=== PATIENT | male | born 1950 | race Caucasian/White ===

== ENCOUNTER 2016-08-25 11:01 | Emergency (ER) | payer MEDICAID, OTHER ==
[~2016-08-25] VITALS: Ht 167.6 cm; Wt 90.0 kg
[2016-08-25 11:03] VITALS: BP 167/84; PULSE 72; RESP 19; TEMP 97.4; O2SAT 98
[2016-08-25 11:28] VITALS: BP 157/86; PULSE 70; RESP 18; O2SAT 100
[2016-08-25] MEDS ORDERED: KETOROLAC TROMETHAMINE 30 MG/ML (IVP) VIAL IV PUSH ONE (11:30)
[2016-08-25] MEDS ORDERED: HYDROmorphone HCL PF 1 MG/ML VIAL IV PUSH ONE (11:30)
[2016-08-25] MEDS ORDERED: SODIUM CHLORIDE 0.9% FLUSH 10 ML FLUSH IV FLUSH PRN (11:30)
[2016-08-25] MEDS ORDERED: ONDANSETRON HCL 4 MG/2 ML VIAL IV PUSH ONE (11:30)
[2016-08-25] MEDS ORDERED: SODIUM CHLORID 0.9% 500 ML INJ 500 ML IV ONE (11:30)
--- NOTE | 2016-08-25 11:30 | PD ---
HPI Chief Complaint: Abdominal Pain Time Seen by Provider: 11:22 Travel History International Travel<30 days: No Contact w/Intl Traveler<30days: No Traveled to known affect area: No History of Present Illness HPI SUDDEN ONSET RIGHT FLANK PAIN, NAUSEA, NO VOMITING, NORMAL STOOL/ BM....OTHERWISE WAS DOING WELL PREVIOUSLY PFSH Past Medical History Hx Anticoagulant Therapy: Yes (PLAVIX) Cardiovascular Problems: Yes (HTN, NV) Social History Tobacco Use: No Allergies-Medications (Allergen,Severity, Reaction): Coded Allergies: Hydrocodone (Verified Allergy, Severe, VOMITING, 08/25/16) Review of Systems Except as stated in HPI: all other systems reviewed are Neg Gastrointestinal: Positive: Nausea, Abdominal Pain Genitourinary: Positive: Flank Pain Physical Exam Narrative GENERAL: SKIN: Warm and dry. HEAD: Atraumatic. Normocephalic. EYES: Pupils equal and round. No scleral icterus. No injection or drainage. ENT: No nasal bleeding or discharge. Mucous membranes pink and moist. NECK: Trachea midline. No JVD. CARDIOVASCULAR: Regular rate and rhythm. RESPIRATORY: No accessory muscle use. Clear to auscultation. Breath sounds equal bilaterally. GASTROINTESTINAL: Abdomen soft, non-tender, nondistended. Hepatic and splenic margins not palpable. REDUCIBLE UMBILICAL HERNIA AND REDUCIBLE RIGHT PARAABDOMINAL MUSCULOSKELETAL: Extremities without clubbing, cyanosis, or edema. No obvious deformities. NEUROLOGICAL: Awake and alert. No obvious cranial nerve deficits. Motor grossly within normal limits. Five out of 5 muscle strength in the arms and legs. Normal speech. PSYCHIATRIC: Appropriate mood and affect; insight and judgment normal. Data Data Last Documented VS Vital Signs Date Time Temp Pulse Resp B/P Pulse Ox O2 Delivery O2 Flow Rate FiO2 08/25/16 11:28 70 18 157/86 100 Room Air 08/25/16 11:03 97.4 Orders Complete Blood Count With Diff (08/25/16 11:22) Comprehensive Metabolic Panel (08/25/16 11:22) Lipase (08/25/16 11:22) Prothrombin Time / Inr (Pt) (08/25/16 11:22) Act Partial Throm Time (Ptt) (08/25/16 11:22) Urinalysis - C+S If Indicated (08/25/16 11:22) Ct Abd/Pel W/O Iv Contrast (08/25/16 11:22) Iv Access Insert/Monitor (08/25/16 11:22) Ecg Monitoring (08/25/16 11:22) Oximetry (08/25/16 11:22) NPO (08/25/16 11:22) Sodium Chloride 0.9% Flush (Ns Flush) (08/25/16 11:30) Ketorolac Inj (Toradol Inj) (08/25/16 11:30) Hydromorphone Pf Inj (Dilaudid Pf Inj) (08/25/16 11:30) Ondansetron Inj (Zofran Inj) (08/25/16 11:30) Sodium Chlorid 0.9% 500 Ml Inj (Ns 500 M (08/25/16 11:30) Labs Laboratory Tests Test 08/25/16 11:25 White Blood Count 6.1 TH/MM3 Red Blood Count 5.00 MIL/MM3 Hemoglobin 11.1 GM/DL Hematocrit 35.6 % Mean Corpuscular Volume 71.3 FL Mean Corpuscular Hemoglobin 22.2 PG Mean Corpuscular Hemoglobin 31.2 % Concent Red Cell Distribution Width 20.0 % Platelet Count 214 TH/MM3 Mean Platelet Volume 8.2 FL Neutrophils (%) (Auto) 80.6 % Lymphocytes (%) (Auto) 11.3 % Monocytes (%) (Auto) 5.5 % Eosinophils (%) (Auto) 2.3 % Basophils (%) (Auto) 0.3 % Neutrophils # (Auto) 4.9 TH/MM3 Lymphocytes # (Auto) 0.7 TH/MM3 Monocytes # (Auto) 0.3 TH/MM3 Eosinophils # (Auto) 0.1 TH/MM3 Basophils # (Auto) 0.0 TH/MM3 CBC Comment DIFF FINAL Differential Comment Prothrombin Time 10.7 SEC Prothromb Time International 1.0 RATIO Ratio Activated Partial 23.3 SEC Thromboplast Time Sodium Level 144 MEQ/L Potassium Level 4.0 MEQ/L Chloride Level 112 MEQ/L Carbon Dioxide Level 22.8 MEQ/L Anion Gap 9 MEQ/L Blood Urea Nitrogen 14 MG/DL Creatinine 1.21 MG/DL Estimat Glomerular Filtration 60 ML/MIN Rate Random Glucose 185 MG/DL Calcium Level 9.4 MG/DL Total Bilirubin 0.4 MG/DL Aspartate Amino Transf 25 U/L (AST/SGOT) Alanine Aminotransferase 30 U/L (ALT/SGPT) Alkaline Phosphatase 72 U/L Total Protein 7.4 GM/DL Albumin 3.9 GM/DL Lipase 140 U/L MDM Medical Decision Making Medical Screen Exam Complete: Yes Emergency Medical Condition: Yes Medical Record Reviewed: Yes Differential Diagnosis RENAL STONE V AAA V DISSECTION (AORTA) Narrative Course NOW PT PAIN IS WELL CONTROLLED, CT SHOWS RENAL STONE IN DISTAL PELVIS, AND IS EXPECTED TO PASS. Diagnosis Primary Impression: Ureterolithiasis Patient Instructions: General Instructions, Kidney Stones (ED) Med/Other Pt SpecificInfo: Prescription(s) given Scripts Oxycodone-Acetaminophen (Percocet)10-325 mg Tab1 Tab PO Q4H PRN (PAIN) #24 TAB Ref 0 Prov:Aries Rodriguez MD 08/25/16 Ondansetron Odt (Zofran Odt)4 Mg Tab4 Mg SL Q6HR PRN (Nausea/Vomiting) #12 TAB Prov:Aries Rodriguez MD 08/25/16 Disposition: 01 DISCHARGE HOME Condition: Stable Aries Rodriguez MD Aug 25, 2016 11:30
[2016-08-25 11:43] LABS: AUTOMATED NEUTROPHIL # 4.9 TH/MM3 (1.8-7.7); BASOPHIL % 0.3 % (0.0-2.0); EOSINOPHIL # 0.1 TH/MM3 (0-0.4); EOSINOPHIL % 2.3 % (0.0-4.0); HEMATOCRIT 35.6 % (39.0-51.0); HEMO FLAGS DIFF FINAL; LYMPH % 11.3 % (9.0-44.0); LYMPHOCYTE # 0.7 TH/MM3 (1.0-4.8); MEAN CELL VOLUME 71.3 FL (80.0-100.0); MEAN CORPUSCULAR HEMOGLOBIN 22.2 PG (27.0-34.0); MEAN CORPUSCULAR HGB CONC 31.2 % (32.0-36.0); MONO % 5.5 % (0.0-8.0); NEUT % 80.6 % (16.0-70.0); PLATELET COUNT 214 TH/MM3 (150-450); WHITE BLOOD COUNT 6.1 TH/MM3 (4.0-11.0)
[2016-08-25 11:49] LABS: APTT (PATIENT) 23.3 SEC (24.3-30.1); PROTHROMBIN TIME - PATIENT 10.7 SEC (9.8-11.6)
[2016-08-25 11:54] LABS: ALT (GPT) 30 U/L (12-78); ANION GAP 9 MEQ/L (5-15); AST (GOT) 25 U/L (15-37); BICARBONATE 22.8 MEQ/L (21.0-32.0); BLOOD UREA NITROGEN 14 MG/DL (7-18); CHLORIDE 112 MEQ/L (98-107); GLOMERULAR FILTRATION RATE 60 ML/MIN (>89); SODIUM (NA) 144 MEQ/L (136-145)
[2016-08-25 11:57] LABS: ALKALINE PHOSPHATASE 72 U/L (45-117); TOTAL BILIRUBIN ADULT 0.4 MG/DL (0.2-1.0)
--- NOTE | 2016-08-25 12:14 | RADRPT ---
EXAM DATE/TIME: 08/25/2016 11:54 [facility] COMPARISON: No previous studies available for comparison. INDICATIONS : Right lower abdomen pain ORAL CONTRAST: No oral contrast ingested. RADIATION DOSE: 18.48 CTDIvol (mGy) MEDICAL HISTORY : Cardiovascular disease. Hypertension. SURGICAL HISTORY : None. ENCOUNTER: Initial ACUITY: 1 day PAIN SCALE: 9/10 LOCATION: Right flank TECHNIQUE: Volumetric scanning of the abdomen and pelvis was performed. Using automated exposure control and ad justment of the mA and/or kV according to patient size, radiation dose was kept as low as reasonably achievable to obtain optimal diagnostic quality images. FINDINGS: LOWER LUNGS: The visualized lower lungs are clear. LIVER: Homogeneous density without lesion. There is no dilation of the biliary tree. No calcified gallston es. SPLEEN: The spleen is enlarged measuring 16.6 cm. PANCREAS: Within normal limits. KIDNEYS: There is mild right hydronephrosis and hydroureter caused by a 6 x 4 mm stone in the distal right ure ter within the pelvis. There is right perinephric inflammatory stranding. There are 2 separate 2 mm n onobstructing stones in the left kidney. ADRENAL GLANDS: Within normal limits. VASCULAR: There is no aortic aneurysm. There is atherosclerotic disease of the aorta. BOWEL/MESENTERY: The stomach, small bowel, and colon demonstrate no acute abnormality. Moderate size hiatal hernia is present. The appendix is normal. There is no free intraperitoneal air or fluid. ABDOMINAL WALL: There is a small fat containing umbilical hernia. RETROPERITONEUM: There is no lymphadenopathy. BLADDER: No wall thickening or mass. REPRODUCTIVE: Within normal limits. INGUINAL: There is no lymphadenopathy or hernia. MUSCULOSKELETAL: There are mild degenerative changes of the lumbar spine. CONCLUSION: 1. There is a 6 x 4 mm stone in the distal right ureter within the pelvis causing mild right hydronep hrosis, hydroureter, and perinephric inflammatory change. 2. There are 2 separate 2 mm nonobstructing stones in the left renal collecting system. 3. Nonacute findings include moderate size hiatal hernia, mild atherosclerotic disease, and mild sple nomegaly. Santana Patten MD on August 25, 2016 at 12:05 Board Certified Radiologist. This report was verified electronically.
[2016-08-25] MEDS ORDERED: PERC10TA27 PO (12:50)
[2016-08-25] MEDS ORDERED: ZOFR4TAB3 SL (12:50)
[2016-08-25 13:10] LABS: BACTERIA, URINE RARE /hpf; BLOOD, URINE NEG (NEG); COMMENT (UR) CULTURE INDICATED; CULTURE IF INDICATED CULTURE INDICATED; GLUCOSE,URINE NEG (NEG); KETONE, URINE NEG (NEG); MUCUS URINE FEW /lpf (OCC); NITRITE,URINE NEG (NEG); SQUAMOUS EPITHELIAL CELL URINE <1 /hpf (0-5); URINE COLOR DARK-YELLOW (YELLW/STRAW)
[2016-08-25 13:16] VITALS: BP 119/70
== END 2016-08-25 13:20 | disposition home or self-care (01) ==
LOC: NEPC 11:01
DX: N20.1 Calculus of ureter (principal); I10 Essential (primary) hypertension; I25.2 Old myocardial infarction; Z79.02 Long term (current) use of antithrombotics/antiplatelets
CPT/HCPCS: 74176; 80053; 81001; 83690; 85025; 85610; 85730; 87086; 96361; 96374; 96375; 99285; J1170; J1885; J2405; J7040